=== PATIENT | male | born 1970 | race Caucasian/White ===

== ENCOUNTER 2020-01-21 20:49 | Emergency (ER) | payer OTHER ==
[2020-01-21] MEDS ORDERED: KETOROLAC TROMETHAMINE 30 MG/1 ML VIAL IVPUSH ONE (21:02)
[2020-01-21] MEDS ORDERED: SODIUM CHLORIDE 1,000 ML IV STA (21:02)
[2020-01-21] MEDS ORDERED: KETOROLAC TROMETHAMINE 30 MG/1 ML VIAL ONE (21:05)
[2020-01-21 21:24] VITALS: PULSE 88; TEMP 97.9; BMI 29.7
[2020-01-21 21:38] LABS: BASO % 0.8 % (0-2.0); HEMATOCRIT 47.7 % (35.4-49); HEMOGLOBIN 16.5 GM/dl (11.7-16.9); LYMPH % 29.7 % (8-40); MCH 31.8 pg (25.7-33.7); MCHC 34.7 g/dl (32.0-35.9); MEAN CELL VOLUME 91.7 fl (80-96); MEAN PLT VOLUME 7.7 fl (7.5-11.1); MONO % 6.6 % (3.8-10.2); NEUT % 60.9 % (42.8-82.8); PLATELET COUNT 194 K/MM3 (134-434); RDW 12.1 % (11.9-15.9); WHITE BLOOD COUNT 7.1 K/mm3 (4.0-10.8)
[2020-01-21 21:54] LABS: ALBUMIN 4.5 g/dl (3.4-5.0); BILIRUBIN,TOTAL 0.9 mg/dl (0.2-1); CALCIUM 8.7 mg/dl (8.5-10); CREATININE 0.9 mg/dl (0.55-1.3); POTASSIUM 3.7 mmol/L (3.5-5.1); TOT PROT 6.9 g/dl (6.4-8.2)
[2020-01-21 22:06] VITALS: BP 153/101
[2020-01-21 22:06] LABS: CALCIUM OXALATE CRYSTALS FEW /hpf (NONE SEEN)
[2020-01-21] MEDS ORDERED: TAMSULOSIN HCL 0.4 MG CAP PO ONE (22:58)
[2020-01-21] MEDS ORDERED: TAMSULOSIN HCL 0.4 MG CAP ONE (23:00)
--- NOTE | 2020-01-21 23:06 | PDOC ---
Documentation entered by Arabella Gibbs SCRIBE, acting as scribe for Sarah Lipscomb MD. Sarah Lipscomb MD: This documentation has been prepared by the Sai fall Brenda, SCRIBE, under my direction and personally reviewed by me in its entirety. I confirm that the documentation accurately reflects all work, treatment, procedures, and medical decision making performed by me. History of Present Illness - General Chief Complaint: Pain Stated Complaint: Right Flank Pain History Source: Patient Exam Limitations: No Limitations - History of Present Illness Initial Comments: 01/21/20 20:56 The patient is a 49 year old male with a significant PMH of sarcidosis and IBS (untreated) who presents to the emergency department for evaluation of 2 hours of severe right sided flank pain. The patient notes that the pain is a 9/10 in severity and is aggravated by movement. He also notes that yesterday he began feeling some right groin pressure accompanied by right leg spasms, he notes it felt like gas pains. He is also endorsing pressure when urinating for the past couple of days along with some urinary frequency. Patient reports passing kidney stones 12 years ago. The patient denies testicular pain. Denies chest pain, shortness of breath, headache and dizziness. Denies fever, chills, nausea, vomiting, diarrhea and constipation. Denies dysuria, urgency and hematuria. Allergies: NKA Past surgical history: None reported Past History - Medical History Allergies/Adverse Reactions: Allergies Allergy/AdvReac Type Severity Reaction Status Date / Time No Known Allergies Allergy Verified 01/21/20 20:50 Home Medications: Ambulatory Orders Oxycodone HCl/Acetaminophen [Percocet 5-325 mg Tablet] 1 tab PO Q6H PRN #12 tablet MDD 4 tabs 01/21/20 Tamsulosin HCl [Flomax] 0.4 mg PO DAILY #10 capsule 01/21/20 Review of Systems - Review of Systems Able to Perform ROS?: Yes Comments:: 01/21/20 21:08 GENERAL/CONSTITUTIONAL: No fever or chills. No weakness. HEAD, EYES, EARS, NOSE AND THROAT: No change in vision. No ear pain or discharge. No sore throat. CARDIOVASCULAR: No chest pain or shortness of breath. RESPIRATORY: No cough, wheezing, or hemoptysis. GASTROINTESTINAL: No nausea, vomiting, diarrhea or constipation. GENITOURINARY: (+) Left flank pain. (+) Mild frequency. No dysuria. MUSCULOSKELETAL: No joint or muscle swelling or pain. No neck pain. SKIN: No rash NEUROLOGIC: No headache, vertigo, loss of consciousness, or change in strength/sensation. ENDOCRINE: No increased thirst. No abnormal weight change. HEMATOLOGIC/LYMPHATIC: No anemia, easy bleeding, or history of blood clots. ALLERGIC/IMMUNOLOGIC: No hives or skin allergy. *Physical Exam - Physical Exam 01/21/20 21:22 GENERAL: (+) Mildy distressed due to pain. Awake, alert, and fully oriented. HEAD: No signs of trauma EYES: PERRLA, EOMI, sclera anicteric, conjunctiva clear ENT: (+) Mildly dry mucous membranes. Auricles normal inspection, hearing grossly normal, nares patent, oropharynx clear without exudates. NECK: Normal ROM, supple, no lymphadenopathy, JVD, or masses LUNGS: Breath sounds equal, clear to auscultation bilaterally. No wheezes, and no crackles HEART: Regular rate and rhythm, normal S1 and S2, no murmurs, rubs or gallops ABDOMEN: (+) Mild right flank tenderness. (+) Mildy distended. No CVA tenderness. Soft, nontender quadrants, normoactive bowel sounds. No guarding, no rebound. No masses EXTREMITIES: Normal range of motion, no edema. No clubbing or cyanosis. No cords, erythema, or tenderness NEUROLOGICAL: Cranial nerves II through XII grossly intact. Normal speech, normal gait SKIN: Warm, Dry, normal turgor, no rashes or lesions noted. 09 ED Treatment Course - LABORATORY CBC & Chemistry Diagram: 01/21/20 21:20 01/21/20 21:03 ED Progress Note - Progress Note Progress Note: As noted above, this 49-year-old man with a history of sarcoidosis, IBS and renal colic presents with few hour history of severe right flank pain. He had had some intermittent discomfort of the right side of his abdomen for the past few days. He has a history of renal colic 12 years ago; today symptoms are very similar to that episode. He denies nausea/vomiting/fever. He has had some mild dysuria/frequency symptoms for a few days. His previous episode of renal colic resolved after passage of the stone spontaneously. He has had no other urologic issues since then. Exam as noted. This 49-year-old man with a history of renal colic several years ago presents with severe flank pain suggestive of renal colic. IV access was obtained and IV normal saline hydration started. Toradol 30 mg IV given for analgesia CBC and chemistry profile as well as urinalysis sent: No significant abnormality on CBC or chemistry profile. UA notable for 3+ blood (> 100 RBCs, 0-2 WBCs few calcium oxalate crystals and few bacteria seen on microscopic exam). Urine culture and sensitivity sent. Renal stone protocol spiral CT performed to evaluate for ureteral stone/hydronephrosis/hydroureter. Interpretation by Dr. Reeves of the radiology staff: 2.8 mm obstructing stone in the distal right ureter just prior to the UVJ resulting in mild right renal hydroureteronephrosis. Also seen incidentally was a juxtapleural nodule measuring 6 mm in the left lower lobe. Results discussed with the patient Patient feels significantly better after 1 L normal saline IV and 30 mg of Toradol IV. Although he has some discomfort, he wishes to be discharged and continue hydration and analgesia at home. Prescription for Percocet 5/325 (#12) to be used every 6 hours as needed for severe pain (max dose per day 4 tabs) has been sent to patient's pharmacy. He should use ibuprofen/acetaminophen as needed for mild to moderate pain. Patient has been advised to drink plenty of fluids and to strain his urine. He should retain all strained stones for analysis. Flomax 0.4 mg daily will be prescribed with the first dose given here in the emergency room tonight. Patient does not have a urologist and he was given 's referral information. He should follow-up with urology, especially if he has any persistent discomfort/pain. He should return to the emergency room if he has severe pain, vomiting or fever Discharge - Discharge Information Problems reviewed: Yes Clinical Impression/Diagnosis: Renal colic on right side Condition: Stable Disposition: HOME - Additional Discharge Information Prescriptions: Tamsulosin HCl [Flomax] 0.4 mg PO DAILY #10 capsule Oxycodone HCl/Acetaminophen [Percocet 5-325 mg Tablet] 1 tab PO Q6H PRN #12 tablet MDD 4 tabs PRN Reason: Severe Pain - Follow up/Referral Referrals: Harkisoon,Shantie, MD [Primary Care Provider] - Jarad Painter MD [Staff Physician] - - Patient Discharge Instructions Patient Printed Discharge Instructions: Kidney Stones -- Adult Additional Instructions: drink plenty of fluids Strain all urine for the next several days and retain any stones for analysis Flomax 0.4 mg capsule once a day for the next 10 days (next dose tomorrow) Ibuprofen/naproxen/acetaminophen as needed for mild to moderate pain Percocet 5/325 1 tab every 6 hours as needed for severe pain Avoid any activity requiring your full attention while taking Percocet Follow-up with urologist ( group) if you have persistent pain Return to ER if you have severe, unrelenting pain or develop vomiting/fever Follow-up with your general doctor within the next week - Post Discharge Activity
== END 2020-01-21 23:17 | disposition home or self-care (01) ==
LOC: FER 20:49 → SUPCPDRO 20:49 → FER 23:17
PROC: 3E0333Z Introduction of Anti-inflammatory into Peripheral Vein, Percutaneous Approach (ICD-10-PCS; principal; 2020-01-21)
PROC: 3E0337Z Introduction of Electrolytic and Water Balance Substance into Peripheral Vein, Percutaneous Approach (ICD-10-PCS; 2020-01-21)
DX: N23 Unspecified renal colic (principal)
CPT/HCPCS: 36415; 74176-TC; 80053; 81003; 81015; 85025; 87086; 99284-25